=== PATIENT | male | born 1995 | race Caucasian/White ===

== ENCOUNTER 2016-11-20 10:13 | Emergency (ER) | payer OTHER ==
[2016-11-20] MEDS ORDERED: ONDANSETRON HCL 4 MG/2 ML VIAL ONE (11:07)
[2016-11-20 11:29] LABS: BASOPHILS 0.6 % (0.0-2.0); EOSINOPHILS 1.8 % (0.0-6.0); EOSINOPHILS# 0.1 X 10^3uL (0.0-0.4); HEMATOCRIT 49.8 % (42.0-54.0); HEMOGLOBIN 17.3 g/dL (14.0-18.0); LYMPHOCYTES 18.8 % (20.0-40.0); LYMPHOCYTES# 1.3 X 10^3uL (0.8-3.8); MEAN CELL VOLUME 87.5 fL (80.0-100.0); MEAN CORPUS. HGB CONCENTRATION 34.7 g/dL (32.0-36.0); MEAN CORPUSCULAR HEMOGLOBIN 30.4 pg (29.0-35.0); MEAN PLATELET VOLUME 11.5 fL (7.4-10.4); MONOCYTES# 0.6 X 10^3uL (0.2-1.0); NEUTROPHILS 69.8 % (54.0-75.0); NEUTROPHILS# 4.9 X 10^3uL (2.6-6.7); PLATELET COUNT 180 X 10^3uL (130-440); RED BLOOD COUNT 5.69 X 10^6uL (4.20-6.10); RED CELL DISTRIBUTION WIDTH 12.1 % (11.5-14.5); WHITE BLOOD COUNT 6.9 X 10^3uL (3.9-10.7)
[2016-11-20 11:40] LABS: ALBUMIN 4.7 g/dL (3.5-5.0); ALKALINE PHOSPHATASE 62 U/L (38-126); ALT 34 U/L (21-72); AST 24 U/L (17-59); BILIRUBIN, TOTAL 0.6 mg/dL (0.2-1.3); BLOOD UREA NITROGEN 17 mg/dL (9-20); CHLORIDE 101 mmol/L (98-107); EST GLOMERULAR FILTRATION RATE > 60 mL/min; GLUCOSE 82 mg/dL (70-100); LIPASE 52 U/L (23-300); POTASSIUM 3.9 mmol/L (3.5-5.1); SODIUM 142 mmol/L (137-145)
--- NOTE | 2016-11-20 12:02 | CT REPORT ---
HISTORY: Right lower quadrant pain. COMPARISON: None. TECHNIQUE: This examination was performed using automated exposure control, adjustment of mA or kV according to patient size, and/or use of iterative reconstruction technique. Multiple contiguous axial images were obtained from the lung bases through the pubic symphysis following administration of intravenous con trast. 100cc Isovue 300 contrast. FINDINGS: LUNGS: Visualized lungs are clear. Hepatobiliary:11 mm hypoenhancing lesion in segment 6/7 of liver (image 38, series 2) is incompletely characterized, but is most likely benign. The hepatic parenchyma is otherwise normal enhancement. Th e portal vein enhances normally. There is no intrahepatic biliary ductal dilatation. The gallbladder is incompletely distended. Spleen: Normal in size and radiographic appearance. Pancreas: No focal pancreatic lesion or pancreatic ductal dilatation. Adrenals:Unremarkable. Kidneys: There is symmetric enhancement of the renal parenchyma. There is no evidence of hydronephro sis or renal cortical mass. Peritoneum: There is no evidence of free fluid or free air. Vessels: Unremarkable. Lymph nodes: Prominent cecal/right lower quadrant mesenteric lymph nodes measuring up to 9 mm in shor t axis are most likely reactive. There is no evidence of para-aortic or pelvic lymphadenopathy. Bowel: The stomach is incompletely distended. The small bowel appears unremarkable. The appendix is w ell visualized and appears normal. The colon is incompletely distended with stool. No focal bowel wa ll thickening is seen. Pelvis: The bladder appears unremarkable, without intraluminal mass or calculus. The prostate is not enlarged. Bones: The bones are normally mineralized and aligned. No blastic or lytic lesions are seen. The sof t tissues appear unremarkable. There is no evidence of rectus sheath hematoma. IMPRESSION: No evidence of appendicitis or renal/ureteral calculus. Multiple prominent right lower quadrant mesenteric lymph nodes not meeting criteria for pathologic en largement are most likely reactive. 11 mm hypodensity in segment 6/7 of liver is most likely benign. Final Electronic Signature: This report was electronically signed by Humberto Samano MD on 7 12:00 PM. pao /
--- NOTE | 2016-11-20 12:46 | ER NURSING DOCUMENTATION ---
Nurse's Notes [facility] ([place], [place]) Name:Humberto Cardoza Age:20 yrs Sex:Male :1995 Arrival Date:11/20/2016 Time:10:13 Bed5 Private MD: Diagnosis:Abdominal Pain, Right Lower Quadrant;Lymphadenitis Mesenteric Presentation: 11/20 10:19 Acuity: COLTON 3 ke 10:25 Presenting complaint: Patient states: Pt. states that he's had RLQ pain on and off for ke two weeks. Worse with movement and is occasionally nauseated. Regular defecation and pain is worse over the past 3 days and is more constant. Denies V/D. 11:18 Transition of care: Home. Notified ED Physician of patient's arrival and CC Dr. Mei bates notified. 11:18 Method Of Arrival: Private Vehicle Triage Assessment: 11:19 General: Appears in no apparent distress, uncomfortable, Behavior is cooperative, ke pleasant, quiet. Pain: Complains of pain in right lower quadrant Pain currently is 4 out of 10 on a pain scale. At worst was 7 out of 10 on a pain scale. Quality of pain is described as aching, tender. EENT: Oral mucosa is moist. Neuro: Level of Consciousness is awake, alert, Oriented to person, place, time, Moves all extremities. Facial symmetry appears normal. Cardiovascular: Capillary refill is brisk Heart tones S1 S2 present. Respiratory: Airway is patent Trachea midline Respiratory effort is even, unlabored, Respiratory pattern is regular, symmetrical, Breath sounds are clear bilaterally. GI: Abdomen is flat, non- distended Bowel sounds present X 4 quads. Abd is soft X 4 quads Abdomen is tender to palpation in right lower quadrant. : No deficits noted. Derm: No deficits noted. Musculoskeletal: No deficits noted. Historical: - Allergies: No known drug Allergies; - Home Meds: 1. Multi-Day oral - Tetanus: < 10 years. - Ebola Screening: : Patient negative for fever greater than or equal to 101.5 degrees Fahrenheit, and additional compatible Ebola Virus Disease symptoms. - Immunization history: Pneumococcal vaccine status is unknown, Flu Vaccine None. - Social history: Smoking status: Patient states was never smoker of tobacco. Screenin:22 Infectious Disease Risk None. Abuse screen: Denies threats or abuse. Denies injuries ke from another. Nutritional screening: No deficits noted. Assessment: 11:22 See Triage Assessment done by same RN. GI: Abdomen is flat, non- distended Abdomen is ke tender to palpation in right lower quadrant. Vital Signs: 10:20 BP 136 / 69; Pulse 82; Resp 16; Temp 98.5; Pulse Ox 93% on R/A; Weight 81.65 kg; Height ke 5 ft. 8 in. (172.72 cm); Pain 4/10; 12:04 BP 139 / 52 (auto/); Pulse 60; Resp 14; Pain 3/10; ke 10:20 Body Mass Index 27.37 (81.65 kg, 172.72 cm) ke ED Course: 10:14 Patient arrived in ED. lr3 10:19 Doris Muñoz, RN is Primary Nurse. ke 10:19 Triage completed. ke 10:38 Pascual Hurley MD is Attending Physician. cd 11:00 Inserted saline lock: 20 gauge in right forearm and blood collected. ke 11:[address] saadia 11:22 Valuables Remains with patient Patient has correct armband on for positive ke identification. Placed in gown. Bed in low position. Call light in reach. 11:37 CAT SCAN; ABD/PEL W 70952 In Process Unspecified. EDMS 11:47 Patient moved back from [address]. saadia 12:04 Clayton Raya MD is Referral Physician. cd Administered Medications: 11:05 Drug: Zofran 4 mg; Route: IVP; Infused Over: 2 mins; Site: right forearm; ke 12:44 Follow up: Response: No change in condition Point of Care Testing: Urine Dip: 11:44 pH: 7.0; ; Specific [place]: 1.010; Ketones: Negative; Glucose: Negative; Protein: ke Negative; Leukocytes: Negative; Nitrite: Negative ; Blood: Non Hemolyzed Trace; Bilirubin: Negative ; Urobilinogen: Normal Outcome: 12:04 Discharge ordered by . cd 12:25 Discharged to home ambulatory. ke 12:25 Condition: unchanged 12:25 Discharge instructions given to patient, Instructed on discharge instructions, follow up and referral plans. 12:25 IV D/Breezy 12:45 Patient left the ED. ke 11/21 08:13 Discharge F/U Call: Spoke with: patient. Are you having any pain? yes. Pain level is lp 2 / 10 How are you managing your pain? Patient is taking medication: tylenol Have you made a f/u appointment? yes Signatures: Dispatcher [employer] Khalida Agosto RN RN lp Daley, Chris, MD MD cd Abbott, Doris Soto RN RN ke Roach, Lelia lr3
--- NOTE | 2016-11-20 12:46 | ER PHYSICIAN DOCUMENTATION ---
Physician Documentation [facility] Name:Humberto Cardoza Age:20 yrs Sex:Male :1995 Arrival Date:11/20/2016 Time:10:13 Bed5 Private MD: Pascual Garza Disposition: 11/20/16 12:04 Discharged to Home/Self Care. Impression: Abdominal Pain, Right Lower Quadrant, Lymphadenitis Mesenteric. - Condition is Good. - Discharge Instructions: ABDOMINAL PAIN, Unkown Cause, (Male), ADENITIS, MESENTERIC. - Medical Reconciliation form form. - Follow up: Clayton Raya MD; When: 2 - 3 days; Reason: Recheck today's complaints, Continuance of care. - Problem is new. - Symptoms are unchanged. - Notes: Drink plenty of fluids.... Take Tylenol for pain.... Limit lifting for next few days.... Follow up with Dr. Raya in 2 - 3 days for recheck HPI: 11/20 10:20 This 20 yrs old Male presents to ER via Private Vehicle with complaints of cd Abdominal Pain, Lower. 10:20 The patient presents with abdominal pain right lower quadrant. Onset: The cd symptoms/episode began/occurred gradually, 2 week(s) ago, and became worse 3 day(s) ago. The symptoms do not radiate. Associated signs and symptoms: Pertinent negatives: anorexia, blood in stools, diarrhea, dysuria, fever, nausea, testicular pain, vomiting. The symptoms are described as intermittent, sharp. Modifying factors: The symptoms are alleviated by remaining still, the symptoms are aggravated by movement, touching the area. Severity of pain: At its worst the pain was moderate in the emergency department the pain is unchanged. Risk factors for testicular torsion: none. The patient has not experienced similar symptoms in the past. Patient is a weight solo truck driver. States it is worse with lifting weights. He has not noticed any bulging areas.. Historical: - Allergies: No known drug Allergies; - Home Meds: 1. Multi-Day oral - Tetanus: < 10 years. - Ebola Screening: : Patient negative for fever greater than or equal to 101.5 degrees Fahrenheit, and additional compatible Ebola Virus Disease symptoms. - Immunization history: Pneumococcal vaccine status is unknown, Flu Vaccine None. - Social history: Smoking status: Patient states was never smoker of tobacco. ROS: 11:20 Constitutional: Negative for chills, fever. cd 11:20 Abdomen/GI: Positive for abdominal pain, Negative for nausea, vomiting, diarrhea, constipation, abdominal distension, anorexia, hematemesis, black/tarry stool, rectal bleeding. 11:20 : Negative for urinary symptoms, hematuria, flank pain. 11:20 All other systems are negative. Exam: 11:20 ENT: Nares patent. No nasal discharge, no septal abnormalities noted. Tympanic cd membranes are normal and external auditory canals are clear. Oropharynx with no redness, swelling, or masses, exudates, or evidence of obstruction, uvula midline. Mucous membranes moist. Back: No spinal tenderness. No costovertebral tenderness. Full range of motion. 11:20 Male : Normal genitalia with no discharge or lesions. cd 11:20 Constitutional: The patient appears alert, awake, comfortable, non-diaphoretic, non-toxic, well developed, well hydrated, well nourished. 11:20 Cardiovascular: Exam negative for acute changes. 11:20 Respiratory: Exam negative for acute changes. 11:20 Abdomen/GI: Inspection: abdomen appears normal, Bowel sounds: normal, Palpation: moderate abdominal tenderness, in the right lower quadrant, mass, is not appreciated, rebound tenderness, is not appreciated, voluntary guarding, is not appreciated, involuntary guarding, is not appreciated, no appreciated organomegaly, Indicators: McBurney's point is tender, Calix's sign is negative. 11:20 : CVA tenderness, is absent, No signs of hernia. 11:20 Skin: Exam negative for acute changes. 11:20 MS/ Extremity: Pulses equal, no cyanosis. Neurovascular intact. Full, normal range cd of motion. Vital Signs: 10:20 BP 136 / 69; Pulse 82; Resp 16; Temp 98.5; Pulse Ox 93% on R/A; Weight 81.65 kg; Height ke 5 ft. 8 in. (172.72 cm); Pain 4/10; 12:04 BP 139 / 52 (auto/); Pulse 60; Resp 14; Pain 3/10; ke 10:20 Body Mass Index 27.37 (81.65 kg, 172.72 cm) ke MDM: 10:20 Data interpreted: Pulse oximetry: on room air is 93 %. Interpretation: normal. cd 10:35 Differential diagnosis: appendicitis, Irritable bowel syndrome, non-specific abd pain, cd Pyelonephritis, Ureterolithiasis, urinary tract infection, Hernia, Muscle Strain. 10:38 Patient medically screened. 11:45 Data reviewed: vital signs, nurses notes, old medical records, lab test result(s), cd radiologic studies, CT scan, and as a result, I will discharge patient, initiate a consult, with a general surgeon. 11:50 Physician consultation: Clayton Raya MD was called at 11:30, was contacted at 11:30, regarding consult, patient's condition, need to evaluate the patient as soon as possible, and will see patient in office, in 2-3 days. 12:10 Counseling: I had a detailed discussion with the patient and/or guardian regarding: the cd historical points, exam findings, and any diagnostic results supporting the discharge/admit diagnosis, lab results, radiology results, the need for outpatient follow up, for a recheck, for a referral to a specialist, a general surgeon, to return to the emergency department if symptoms worsen or persist or if there are any questions or concerns that arise at home. 11/20 11:41 Order name: BASIC METABOLIC PANEL; Complete Time: 12:00 EDMS 11/20 12:00 Interpretation: Normal. 11/20 11:41 Order name: HEPATIC PANEL; Complete Time: 12:00 EDMS 11/20 12:00 Interpretation: Normal. 11/20 11:41 Order name: LIPASE; Complete Time: 12:00 EDMS 11/20 12:00 Interpretation: Normal. 11/20 11:43 Order name: CBC AUTO DIF, MDIF/RMOR IF IND; Complete Time: 12:00 EDMS 11/20 12:00 Interpretation: Normal. 11/20 11:37 Order name: CAT SCAN; ABD/PEL W [id number]; Complete Time: 23:29 EDMS 11/21 23:28 Interpretation: Abnormal: Possible Mesenteric Lymphadenitis. Appendix Normal. See cd Report. 11/20 10:50 Order name: NPO; Complete Time: 11:17 cd 11/20 10:51 Order name: Iv Saline Lock; Complete Time: 11:17 cd Dispensed Medications: 11:05 Drug: Zofran 4 mg; Route: IVP; Infused Over: 2 mins; Site: right forearm; ke 12:44 Follow up: Response: No change in condition ke Point of Care Testing: Urine Dip: 11:44 pH: 7.0; ; Specific [place]: 1.010; Ketones: Negative; Glucose: Negative; Protein: ke Negative; Leukocytes: Negative; Nitrite: Negative ; Blood: Non Hemolyzed Trace; Bilirubin: Negative ; Urobilinogen: Normal Signatures: Pascual Hurley MD MD cd Evens, Kerry, RN RN ke
== END 2016-11-20 12:46 | disposition home or self-care (01) ==
LOC: ER 10:13
DX: R10.31 Right lower quadrant pain (principal); I88.0 Nonspecific mesenteric lymphadenitis
CPT/HCPCS: 74177; 80048; 80076; 83690; 85025; 96374; 99284; J2405